=== PATIENT | male | born 1960 | race African-American/Black ===

== ENCOUNTER → 2020-04-24 | Outpatient (CLI) | payer OTHER ==
--- NOTE | 2020-04-25 12:19 | PF ---
[address] [address] PULMONARY FUNCTION REPORT Name: ALBERTO BANKS Room: [facility]#: [id number] Admission: 04/24/20 Attend Phys: Ken Lindsey MD Discharge: Date of : 64 Report #: [id number] THIS REPORT FOR: //name// CC: Ken Lindsey [facility] unknown [facility] DATE OF SERVICE: 04/24/2020 INTERPRETATION: Only a spirometry was performed. The FEV1/FVC ratio is severely decreased to 49% with an FVC markedly decreased to 50% and FEV1 decreased to 32%. The [id number] is also markedly decreased to 14%. After the administration of a bronchodilator, there is a 36% increase in FVC and 33% increase in FEV1. This increased does exceed 200 mL. The patient's post-bronchodilator FEV1 is noted to be 1.27 liters. IMPRESSION AND PLAN: 1. Severe obstruction with evidence of reversibility. 2. There is a possibility of presence of restriction as well. If clinically indicated, then this could be evaluated further. I repeat pulmonary function tests with lung volumes. <ELECTRONICALLY SIGNED> By: Juno Deng MD 04/25/20 1219 [id number] Deng MD /nt
== END ==
LOC: M.PUL 10:30
PROVIDERS: ATTEND Orthopaedic Surgery
DX: J44.0 Chronic obstructive pulmonary disease with (acute) lower respiratory infection (principal)